=== PATIENT | female | born 1990 ===

== ENCOUNTER 2023-04-07 01:18 | Inpatient (IN) | payer SELFPAY ==
[2023-04-07] MEDS ORDERED: Sodium Chloride 0.9% 20 ML SDV IV PRN (18:23)
[2023-04-07] MEDS ORDERED: Butorphanol 1 MG/ML SDV IVPUSH PRN (18:23)
[2023-04-07] MEDS ORDERED: Methylergonovine 0.2 MG/1 ML Amp IM PRN (18:23)
[2023-04-07] MEDS ORDERED: Sodium Chloride 0.9% 2.5 ML Syringe FLUSH PRN (18:23)
[2023-04-07] MEDS ORDERED: Terbutaline 1 MG/ML SDV SUBCUT PRN (18:23)
[2023-04-07] MEDS ORDERED: Carboprost Tromethamine 250 MCG/1 mL Vial IM PRN (18:23)
[2023-04-07] MEDS ORDERED: Tranexamic Acid 1,000 MG in Sodium Chloride 0.9% 100 ML IV PRN (18:23)
[2023-04-07] MEDS ORDERED: Water For Irrigation,Sterile 1,000 ML Container IRR PRN (18:23)
[2023-04-07] MEDS ORDERED: Sodium Chloride 0.9% 10 ML Syringe FLUSH PRN (18:23)
[2023-04-07] MEDS ORDERED: Misoprostol 200 MCG Tab PO PRN (18:23)
[2023-04-07] MEDS ORDERED: Lidocaine 1% 50 ML MDV INJECT PRN (18:23)
[2023-04-07] MEDS ORDERED: Oxytocin/0.9 % Sodium Chloride 30 UNIT/500 ML BAG IV SCH ×2 (18:30)
[2023-04-07 18:39] LABS: HEMATOCRIT 34.9 % (36.0-46.0); HEMOGLOBIN 11.7 g/dL (12.0-16.0); MEAN CORPUSCULAR HEMOGLOBIN 28.4 pg (27.0-32.0); MEAN CORPUSCULAR HGB CONC 33.5 g/dL (31.0-37.0); MEAN CORPUSCULAR VOLUME 84.7 fL (80.0-98.0); MEAN PLATELET VOLUME 13.2 fL (7.40-12.00); RED BLOOD CELL COUNT 4.12 M/uL (4.30-5.90); WHITE BLOOD CELL COUNT,WBC 8.39 K/uL (4.0-11.0)
[2023-04-07] MEDS ORDERED: Misoprostol 25 MCG (1/4 of 100 MCG) Tab VAG PRN ×2 (19:00→23:00)
[2023-04-07] MEDS ORDERED: Ampicillin 2 GM in Sodium Chloride 0.9% 100 ML IV ONE (19:00)
[2023-04-07] MEDS: Lactated Ringers 1,000 ML IV SCH (19:48)
[2023-04-07] MEDS ORDERED: Insulin Glargine,Hum.Rec.Anlog 100 UNIT/ML 3 ML Pen SUBCUT SCH (21:00)
[2023-04-07] MEDS ORDERED: Insulin Regular in 0.9 % NACL 100 ML IV SCH (21:45)
[2023-04-07] MEDS ORDERED: Dextrose 5%-Lactated Ringers 1,000 ML IV SCH (23:45)
[2023-04-08] MEDS: Ampicillin 1 GM in Sodium Chloride 0.9% 50 ML IV SCH ×6 (00:01→20:28)
[2023-04-08] MEDS ORDERED: Misoprostol 25 MCG (1/4 of 100 MCG) Tab VAG PRN (02:00)
[2023-04-08] MEDS ORDERED: Ropivacaine/PF 400 MG/200 ML PCA ONE (09:52)
[2023-04-08] MEDS ORDERED: Bupivacaine 0.5% 10 ML SDV ONE (09:52)
[2023-04-08] MEDS ORDERED: ePHEDrine 50 MG/ML SDV IVPUSH PRN ×2 (10:46)
[2023-04-08] MEDS ORDERED: Phenylephrine HCl 0.5 MG/5 ML AMP IVPUSH PRN (10:46)
[2023-04-08] MEDS ORDERED: Ropivacaine HCl/PF 400 MG in Premix Bag 1 BAG EPIDUR SCH (11:00)
[2023-04-08] MEDS ORDERED: Acetaminophen 500 MG Tab PO PRN (15:15)
[2023-04-08] MEDS: Ondansetron 4 MG/2 ML SDV IVPUSH PRN ×2 (15:22→21:21)
[2023-04-08] MEDS: Lactated Ringers 1,000 ML IV SCH ×2 (15:24→21:25)
[2023-04-08] MEDS ORDERED: Acetaminophen 500 MG Tab ONE (15:28)
[2023-04-09] MEDS: Ampicillin 1 GM in Sodium Chloride 0.9% 50 ML IV SCH (00:03)
[2023-04-09] MEDS ORDERED: Azithromycin 500 MG in Sodium Chloride 0.9% 250 ML IV ONE (00:31)
[2023-04-09] MEDS ORDERED: ceFAZolin 2 GM in Sodium Chloride 0.9% 50 ML IV ONE (00:32)
[2023-04-09] MEDS ORDERED: Oxytocin 10 Units/1 ML SDV ONE (00:47)
[2023-04-09] MEDS ORDERED: Ketorolac 30 MG/ML SDV ONE (00:47)
[2023-04-09] MEDS ORDERED: Morphine PF 10 MG/10 ML SDV ONE (00:47)
[2023-04-09] MEDS ORDERED: Dexamethasone 4 MG/ML 5 ML MDV ONE (00:47)
[2023-04-09] MEDS ORDERED: Ondansetron 4 MG/2 ML SDV ONE (00:47)
[2023-04-09] MEDS ORDERED: fentaNYL 100 MCG/2 ML SDV ONE (00:47)
[2023-04-09] MEDS ORDERED: Ropivacaine 0.5% 5 MG/ML 30 ML SDV ONE ×2 (00:47→01:39)
[2023-04-09] MEDS ORDERED: ceFAZolin 1 GM Vial ONE (00:47)
[2023-04-09] MEDS ORDERED: Lidocaine 2% 5 ML SDV ONE (00:48)
[2023-04-09] MEDS ORDERED: Bupivacaine 0.5% 10 ML SDV ONE (00:48)
[2023-04-09] MEDS ORDERED: Misoprostol 200 MCG Tab RECTAL PRN (02:06)
[2023-04-09] MEDS ORDERED: Oxytocin 10 Units/1 ML SDV IM PRN (02:06)
[2023-04-09] MEDS ORDERED: Tranexamic Acid 1,000 MG in Sodium Chloride 0.9% 100 ML IV PRN (02:06)
[2023-04-09] MEDS ORDERED: Bisacodyl 10 MG Supp RECTAL PRN (02:06)
[2023-04-09] MEDS ORDERED: Ondansetron 4 MG/2 ML SDV IVPUSH PRN ×3 (02:06→02:20)
[2023-04-09] MEDS ORDERED: Lanolin 100% Cream 7 GM Tube TOP PRN (02:06)
[2023-04-09] MEDS ORDERED: diphenhydrAMINE 50 MG/ML SDV IVPUSH PRN (02:06)
[2023-04-09] MEDS ORDERED: Lactated Ringers 1,000 ML IV SCH (02:15)
[2023-04-09] MEDS ORDERED: Oxytocin/0.9 % Sodium Chloride 30 UNIT/500 ML BAG IV SCH (02:15)
[2023-04-09] MEDS: Ketorolac 30 MG/ML SDV IVPUSH SCH ×4 (02:15→20:28)
[2023-04-09 02:19] LABS: PH,UMBILICAL ARTERIAL 7.232 (7.18-7.38); PH,UMBILICAL VENOUS 7.313 (7.25-7.45)
[2023-04-09] MEDS ORDERED: fentaNYL 100 MCG/2 ML SDV IVPUSH PRN (02:20)
[2023-04-09] MEDS ORDERED: Acetaminophen/oxyCODONE 325-5 MG Tab PO PRN (02:20)
[2023-04-09] MEDS ORDERED: Morphine 2 MG/ML SYRINGE IVPUSH PRN (02:20)
[2023-04-09] MEDS ORDERED: Albuterol 0.083% 2.5 MG/3 ML Neb Soln NEB PRN (02:20)
[2023-04-09] MEDS ORDERED: HYDROmorphone 1 MG/ML Syringe IVPUSH PRN (02:20)
[2023-04-09] MEDS ORDERED: Metoclopramide 10 MG/2 ML SDV IVPUSH PRN (02:20)
[2023-04-09] MEDS ORDERED: Naloxone 0.4 MG/ML SDV IVPUSH PRN (02:20)
[2023-04-09] MEDS ORDERED: fentaNYL 50 MCG/ML SDV IVPUSH PRN (02:20)
[2023-04-09] MEDS ORDERED: droPERidol 5 MG/2 ML SDV IVPUSH PRN (02:20)
[2023-04-09] MEDS: Docusate Sodium 100 MG Cap PO SCH ×2 (09:26→20:29)
[2023-04-09] MEDS: diphenhydrAMINE 50 MG/ML SDV IVPUSH PRN (09:27)
[2023-04-10] MEDS: Ketorolac 30 MG/ML SDV IVPUSH SCH (03:06)
[2023-04-10] MEDS: diphenhydrAMINE 50 MG/ML SDV IVPUSH PRN (03:12)
[2023-04-10 06:22] LABS: HEMOGLOBIN 8.6 g/dL (12.0-16.0)
[2023-04-10] MEDS: Docusate Sodium 100 MG Cap PO SCH ×2 (10:01→20:27)
[2023-04-10] MEDS: Acetaminophen/oxyCODONE 325-5 MG Tab PO PRN (16:32)
[2023-04-10] MEDS: Ibuprofen 800 MG Tab PO PRN (20:28)
[2023-04-11] MEDS: Acetaminophen/oxyCODONE 325-5 MG Tab PO PRN ×5 (01:02→19:31)
[2023-04-11] MEDS: Ibuprofen 800 MG Tab PO PRN (08:41)
[2023-04-11] MEDS: Docusate Sodium 100 MG Cap PO SCH (21:00)
[2023-04-12] MEDS: Acetaminophen/oxyCODONE 325-5 MG Tab PO PRN ×2 (03:14→10:52)
[2023-04-12] MEDS ORDERED: NIFEdipine 30 MG Tab.ER PO SCH (09:00)
[2023-04-12] MEDS: Docusate Sodium 100 MG Cap PO SCH (09:53)
== END 2023-04-12 14:50 | disposition home or self-care (01) | DRG 788 ==
LOC: MW.OB 01:18 → OBSVTOIN 04-09 01:18 → MW.OB 04-09 05:22
PROVIDERS: ADMIT Obstetrics & Gynecology; ATTEND Obstetrics & Gynecology
PROC: 10D00Z1 Extraction of Products of Conception, Low, Open Approach (ICD-10-PCS; principal; 2023-04-09)
PROC: 10907ZC Drainage of Amniotic Fluid, Therapeutic from Products of Conception, Via Natural or Artificial Opening (ICD-10-PCS; 2023-04-09)
PROC: 3E0R3BZ Introduction of Anesthetic Agent into Spinal Canal, Percutaneous Approach (ICD-10-PCS; 2023-04-09)
PROC: 00HU33Z Insertion of Infusion Device into Spinal Canal, Percutaneous Approach (ICD-10-PCS; 2023-04-09)
PROC: 3E033VJ Introduction of Other Hormone into Peripheral Vein, Percutaneous Approach (ICD-10-PCS; 2023-04-09)
PROC: 3E0P7VZ Introduction of Hormone into Female Reproductive, Via Natural or Artificial Opening (ICD-10-PCS; 2023-04-09)
DX: O14.04 Mild to moderate pre-eclampsia, complicating childbirth (principal); O99.824 Streptococcus B carrier state complicating childbirth; O24.12 Pre-existing type 2 diabetes mellitus, in childbirth; O62.1 Secondary uterine inertia; Z3A.37 37 weeks gestation of pregnancy; Z37.0 Single live birth
CPT/HCPCS: 01967; 01968; 36415; 51702; 59025; 64488; 82803; 82947; 85014; 85018; 85027; 86592; 86850; 86900; 86901; A9270-GY; J0290; J0690; J1100; J1200; J1815; J1885; J2274; J2405; J2590; J2795; J3010; J3490; J7120; J7121